=== PATIENT | male | born 1935 | race Caucasian/White ===

== ENCOUNTER → 2021-12-29 09:33 | Outpatient (REF) | payer MEDICARE, SELFPAY ==
--- NOTE | 2021-12-29 09:42 | CA_ITS ---
Transthoracic Echocardiogram Patient (Last, First, Middle): Abner Bravo, Gender: Male Date of : 1935 Age: 86 Procedure Date: 12/29/2021 Procedure Type: Transthoracic Echocardiogram Location: [facility] Height: 170.18 cm Weight: 68.04 kg BSA: 1.79 m2 Heart Rate: bpm BP: 116 / 80 mmHg Barrel Cap Setter: DAVIAN Cochran MD: Analilia REYES Entry Clerk: Barry Crespo MD Symptoms: R60.0 LOCALIZED EDEMA Study Quality: Adequate ECG Rhythm: Sinus Conclusions: - 1. Normal LV systolic function with impaired relaxation filling pattern next 2. Trivial aortic regurgitation 3. Mildly elevated right ventricular systolic pressure 42 mmHg 4. No gross pericardial effusion Findings Left Ventricle Normal left ventricular size, thickness, and systolic function. The visually estimated ejection fraction is between 60-65%. Spectral Doppler is indicative of an impaired relaxation filling pattern. E/E prime ratio is <8, consistent with normal filling pressures. Evidence suggests grade I (mild) diastolic dysfunction. Right Ventricle Normal right ventricular cavity size and systolic function. Atria The left atrium is mildly dilated. There is no evidence of interatrial shunt. The right atrium is normal in size. Aortic Valve There is mild calcification of the aortic valve. There is no aortic valve stenosis. There is trace (trivial) aortic valve regurgitation. Mitral Valve There is mild anterior and posterior mitral leaflet thickening. There is mild mitral annular calcification. There is trace mitral valve regurgitation. There is no mitral valve stenosis. Pulmonic Valve The pulmonic valve was not well visualized. Tricuspid Valve Normal tricuspid valve structure. Normal right atrial pressure. Mild pulmonary hypertension is present. Great Vessels All visible segments of the aorta are normal in size. The pulmonary artery was not well visualized. Venous The inferior vena cava is normal in size and collapses greater than 50% with inspiration. Pericardium/Pleural There is no evidence of pericardial effusion. Prior Study Comparison Changes noted compared to prior study dated: 01/08/2017. RV systolic pressure is mildly elevated Measurements 2D Linear Measurements IVSd: 1.11 0.6-0.9/0.6-1.0 cm LVIDd: 3.75 3.9-5.3/4.2-5.9 cm LVIDd Index: 2.09 2.4-3.2/2.2-3.1 cm/m2 LVIDs: 2.75 2.0-3.6 cm LVPWd: 1.01 0.7-1.1 cm LA Diam: 3.20 2.7-3.8/3.0-4.0 cm LAIDs Index: 1.79 1.5-2.3 cm/m2 LV Mass: 155.51 67-162/88-224 g LV Mass Index: 86.88 43-95/49-115 g/m2 LVOT Diam: 2.20 3.0+(-)1.3 cm 2D Systolic Function EF 4C: 60.60 >55% EF 2C: 57.70 >55% Mitral Valve MV Pk E: 1.09 MV PK A: 1.04 MV Decel Time: 202.00 E/A: 1.00 E'Lateral: 9.79 E'Medial: 7.18 E/E' Med: 15.20 E/E' Lat: 11.10 PHT: 59.00 MVA PHT: 3.73 Decel [place]: 5.38 Aortic Valve AoV Pk Yasmani: 1.61 AoV Mn Yasmani: 1.07 AoV VTI: 0.30 AoV Pk Grad: 10.00 Aov Mn Grad: 5.00 [place] Cont.VTI: 3.06 LVOT LVOT Pk Yasmani: 1.09 LVOT Mn Yasmani: 0.76 LVOT VTI: 0.24 LVOT Pk Grad: 5.00 LVOT Mn Grad: 3.00 LVOT Diam: 2.20 LVOT Area: 3.80 Diastolic Function MV Pk E: 1.09 MV Pk A: 1.04 E/A: 1.00 E'Medial: 7.18 E/E' Med: 15.20 E' Laterial: 9.79 E/E' Lat: 11.10 Right Ventricle TAPSE (mm): 19.50 TVS' Yasmani: 13.10 Tricuspid Valve TR Pk Yasmani: 3.12 TR Pk Grad: 39.00 RA Press: 3.00 RVSP: 42.00 Great Vessels Aorta Sinus of Valsalva: 3.98 2.0-3.[address] [place]: 3.32 1.7-3.4 cm Ao Asc: 3.60 2.1-3.4 cm Ao Arch: 3.10 Updated in Other Vendor System with Status of Final Barry Crespo MD electronically signed on 12/31/2021 1:37:05 PM with status of Final
== END ==
LOC: HO.CARD 09:33
PROVIDERS: PCP Family Medicine; Visit Provider Physician Assistant
DX: R60.0 Localized edema (principal)
CPT/HCPCS: 93306